=== PATIENT | male | born 1985 | race Caucasian/White ===

== ENCOUNTER → 2025-08-14 | Outpatient (CLI) | payer BC ==
[~2025-08-14] MED LIST: ASCO500 PO; MAGNESIUM GLU27.5 M1 PO; Zinc Gluconate100 MG PO
== END | disposition home or self-care (01) ==
LOC: LAB SHORT 07:43 → LAB 07:43
DX: Z30.2 Encounter for sterilization (principal)
CPT/HCPCS: 88302